=== PATIENT | male | born 1955 | race Caucasian/White ===

== ENCOUNTER 2023-06-14 00:21 | Emergency (ER) | payer SELFPAY ==
--- NOTE | 2023-06-14 00:22 | ED.GENMED ---
History of Present Illness
<Taco Starrcordellfarrah, DO - Last Filed: 06/14/23 21:21>
General
Chief Complaint: Back Pain
Time Seen by Provider: 06/14/23 00:22
History of Present Illness
History of Present Illness:
HPI: Patient came in by ambulance. The reason for visit is somewhat unclear. I spoke to the ER nurse who spoke to EMS. Apparently he was picked up outside of [facility]. He comes in with his suitcase and we were initially told that he was homeless.
The patient tells me that he lives at [address] [place] [address] [address]. He says he was trying to stay warm. He says he was down in [place] earlier to get meth. He cannot recall if he ever mated to [place]. He was on several buses
'trying to stay warm'. He also mentions some back pain earlier and that his primary would not give him gabapentin but now he tells us that his back pain is not bothering him.
EXAM:
GENERAL: The patient appears chronically ill and poorly groomed
HEENT: Nasal discharge noted on facial hair
CARDIOVASCULAR: No murmurs, normal heart rate, regular rhythm, No chest wall tenderness
PULMONARY: No respiratory distress, breath sounds are clear and equal
ABDOMEN: Soft with no peritoneal signs, no tenderness
NEUROLOGIC: Very good strength all extremities, no coordination deficits
PSYCHIATRIC: Patient seems to have some flight of ideas and tangential thoughts. He has limited insight and judgment.
EXTREMITIES: Nontender, no edema, moves all extremities equally
SKIN: No rash, no lesions
TIME OF INITIAL ENCOUNTER: 12:30 AM
NUMBER AND COMPLEXITY OF PROBLEMS ADDRESSED AT THE ENCOUNTER
� Chronic conditions affecting care: Back pain
� Acute Exacerbation and/or Progression of Chronic Illness: This is an acute problem
� Differential Diagnosis includes: Electrolyte abnormality, questionable homelessness, anemia
AMOUNT AND/OR COMPLEXITY OF DATA TO BE REVIEWED AND ANALYZED
� I performed an independent evaluation of and my interpretation is:
EKG:
CT:
X-rays:
Laboratory Studies: White count normal 4.9, hemoglobin 12.5, chemistries unremarkable, alcohol undetected
Other:
� Review of other/old records: No old records available for review
� Clinical information was obtained by an independent historian: EMS
� Prescriptions/Medications Considered but not given:
� Further testing considered but not performed:
RISK OF COMPLICATIONS AND/OR MORBIDITY OR MORTALITY OF PATIENT MANAGEMENT
� Social determinants of health affecting care: The patient tells me that he has an apartment in [place] however EMS told us that he was homeless
� Discussion with other providers:
� Escalation of care including admission/observation vs risk of discharge considered: This appears to be more of a social media intern issue. He may or may not truly have a place to live/go to. I suspect somewhat of a
psychiatric/cognitive impairment presentation as well.
Phy Exam
<Taco Blair, DO - Last Filed: 06/14/23 21:21>
Physical Exam
Physical Exam:
See HPI
Course
<Taco Blair, DO - Last Filed: 06/14/23 21:21>
Orders/Labs/Results
Orders:
Orders
06/14/23 00:36
Case Management Consult ONCE
Case Management Consult: Discharge Planning
06/14/23 00:44
Alcohol Urgent
Complete Blood Count/With Diff Urgent
Comprehensive Metabolic Panel Urgent
Abnormal Lab Results
06/14/23
00:44
RBC 4.10 L 10^6/uL
(4.70-6.10)
Hgb 12.5 L g/dL
(13.0-18.0)
Hct 37.2 L %
(39.0-52.0)
MPV 10.6 H fL
(7.4-10.4)
BUN 24 H mg/dl
(20)
06/14/23 00:44
06/14/23 00:44
Vital Signs
Initial and Last Documented VS:
Initial Vital Signs
Temp Pulse Resp BP Pulse Ox
97.5 F 73 18 147/104 100
06/14/23 00:25 06/14/23 00:25 06/14/23 00:25 06/14/23 00:25 06/14/23 00:25
Last Documented Vital Signs
Temp Pulse Resp BP Pulse Ox
97.5 F 67 18 147/104 97
06/14/23 00:25 06/14/23 04:01 06/14/23 04:01 06/14/23 00:25 06/14/23 02:24
<Ned Bates, DO - Last Filed: 06/14/23 06:59>
Orders/Labs/Results
Orders:
Orders
06/14/23 00:36
Case Management Consult ONCE
Case Management Consult: Discharge Planning
06/14/23 00:44
Alcohol Urgent
Complete Blood Count/With Diff Urgent
Comprehensive Metabolic Panel Urgent
Abnormal Lab Results
06/14/23
00:44
RBC 4.10 L 10^6/uL
(4.70-6.10)
Hgb 12.5 L g/dL
(13.0-18.0)
Hct 37.2 L %
(39.0-52.0)
MPV 10.6 H fL
(7.4-10.4)
BUN 24 H mg/dl
(20)
06/14/23 00:44
06/14/23 00:44
Vital Signs
Initial and Last Documented VS:
Initial Vital Signs
Temp Pulse Resp BP Pulse Ox
97.5 F 73 18 147/104 100
06/14/23 00:25 06/14/23 00:25 06/14/23 00:25 06/14/23 00:25 06/14/23 00:25
Last Documented Vital Signs
Temp Pulse Resp BP Pulse Ox
97.5 F 67 18 147/104 97
06/14/23 00:25 06/14/23 04:01 06/14/23 04:01 06/14/23 00:25 06/14/23 02:24
<Taco Blair, DO - Last Filed: 06/14/23 21:21>
*Critical Care Note
Total Time (30-74mins, 75-104mins- exclusive of procedures): Not Applicable
<Ned Bates, DO - Last Filed: 06/14/23 06:59>
Update Note
Update Note:
06/14/2023 0659 AM: Patient became verbally aggressive towards staff. He defecated on the floor. He wanted to leave. He was escorted out of the building. He understands that case management would not be able to meet with him unless he was
outpatient. I advised him that he is welcome to come back at any point.
ED Attending Note
<Taco Blair, DO - Last Filed: 06/14/23 21:21>
-
Portions of this chart may have been created with voice recognition software.� Occasional wrong word or��sound alike� substitutions may have occurred due to the inherent limitations of voice recognition software.
Discharge Plan
Departure
Patient Disposition: Other
Date of Disposition: 06/14/23
Time of Disposition: 02:46
Discharge Problem:
Encounter for medical assessment
Prescriptions:
No Action
Unobtainable
0
Referrals:
NONE,* [Family Provider] -
Interventions
Interventions:
*Risk Screen - Suicide Last Done: 06/14/23 00:25
*General Assessment Last Done: 06/14/23 00:25
*Neglect/Abuse Screening Last Done: 06/14/23 00:25
ED- Fall Risk Assessment Last Done: 06/14/23 06:05
*ED COVID-19 Vaccine History Last Done: 06/14/23 00:25
*Nursing Disposition Last Done: 06/14/23 06:50
ED-Musculoskeletal Assessment Last Done: 06/14/23 02:00
Discharge Date and Time
Discharge Date/Time: 06/14/23 06:50
[2023-06-14 00:25] VITALS: BP 147/104
[2023-06-14 00:50] LABS: % Basophils 0.8 % (0-2); % Eosinophils 3.2 % (0-6); % Immature Granulocytes 0.4 % (0-0.5); % Lymphocytes 33.2 % (20.5-51.1); % Monocytes 7.9 % (1.7-9.3); % Neutrophils 54.5 % (42.2-75.2); Absolute Eosinophils 0.2 10^3/uL (0-0.7); Absolute Lymphocytes 1.6 10^3/uL (1.2-3.4); Absolute Monocytes 0.4 10^3/uL (0.1-0.6); Absolute Neutrophils 2.7 10^3/uL (1.4-6.5); Hematocrit 37.2 % (39.0-52.0); Hemoglobin 12.5 g/dL (13.0-18.0); Mean Corp Hgb Conc. 33.6 g/dL (33.0-37.0); Mean Corpuscular Hgb 30.5 pg (27.0-31.0); Mean Corpuscular Volume 90.7 fL (80.0-94.0); Mean Platelet Volume 10.6 fL (7.4-10.4); Nucleated Red Blood Cells % 0 % (-); Platelet Count 178 10^3/uL (130-400); Red Cell Dist. Width 13.1 % (11.5-14.5); White Blood Cell Count 4.9 10^3/uL (4.8-10.8)
[2023-06-14 01:30] LABS: ALT (SGPT) 26 U/L (0-50); AST (SGOT) 48 U/L (17-59); Albumin 4.3 g/dl (3.5-5.0); Alcohol None Detected; Alkaline Phosphatase 84 U/L (38-126); Blood Urea Nitrogen 24 mg/dl (9-20); Calcium 9.1 mg/dl (8.4-10.2); Carbon Dioxide 25 mmol/L (22-30); Chloride 107 mmol/L (98-107); Glucose 96 mg/dl (70-99); Potassium 3.8 mmol/L (3.5-5.1); Sodium 139 mmol/L (135-145); Total Bilirubin 1.2 mg/dl (0.2-1.3); Total Protein 7.1 g/dl (6.3-8.2); eGFR > 60.00
== END 2023-06-14 06:50 | disposition other institution (70) ==
LOC: EMR 00:21
PROVIDERS: EMERGENCY PHYSICIAN Emergency Medicine
DX: M54.9 Dorsalgia, unspecified (principal); Z02.79 Encounter for issue of other medical certificate; Z59.00 Homelessness unspecified
CPT/HCPCS: 99283; 80053; 82077; 85025

== ENCOUNTER 2023-08-06 18:53 | Emergency (ER) | payer OTHER, SELFPAY ==
[2023-08-06 19:02] VITALS: BP 170/105
--- NOTE | 2023-08-06 19:14 | ED.MUSCINJ ---
HPI-Injury
General
Chief Complaint: Musculo-Skeletal Complaint
Source: patient
Exam Limitations: none
Time Seen by Provider: 08/06/23 19:02
Travel History
Have you had any contact with someone who has COVID-19?: No
Do you have any symptoms of coronavirus? Fever > 100 degrees, chills, cough, shortness of breath, sore throat, loss of taste or smell, muscle aches, or headache?: No
History of Present Illness-Injury
Initial Injury comments:
67-year-old male brought here by EMS from [place] he tripped over the uneven sidewalk and fell scraping his left knee. Blood was noted on his knee. He is brought here for evaluation. He denies alcohol use. He last used meth couple days ago. He
is homeless. He has no complaints. He was belligerent upon arrival demanding water. He was threatening and speaking inappropriately to the nursing staff.
Phy Exam
Physical Exam
Physical Exam:
General: Well-appearing male no acute distress
Skin: Abrasion noted anterior left knee superficial not currently bleeding
Musculoskeletal exam: Able to straight leg raise left knee full flexion left knee nontender no deformities
HEENT: Normocephalic atraumatic pupils equal round reactive to light
MDM/Problems Addressed
Differential Diagnosis Includes:
Abrasion left knee. This was irrigated with saline and dressed with antibacterial ointment and a gauze wrap. No indication for admission or further intervention. Stable for discharge.
*Critical Care Note
Total Time (30-74mins, 75-104mins- exclusive of procedures): Not Applicable
ED Attending Note
-
Portions of this chart may have been created with voice recognition software.� Occasional wrong word or��sound alike� substitutions may have occurred due to the inherent limitations of voice recognition software.
Discharge Plan
Departure
Patient Disposition: Home (Routine Discharge)
Date of Disposition: 08/06/23
Time of Disposition: 19:17
Patient with high blood pressure during this ER visit?: No
Discharge Problem:
Abrasion
Instructions: Wound Care ED
Prescriptions:
No Action
Unobtainable
0
Referrals:
UNKNOWN - PT NOT,INTERVIEWE [Family Provider] -
Activity Restrictions/Additional Instructions:
Apply antibacterial into the wound. Return if needed
Interventions
Interventions:
*Risk Screen - Suicide Last Done: 08/06/23 19:06
*General Assessment Last Done: 08/06/23 19:06
*Neglect/Abuse Screening Last Done: 08/06/23 19:06
*Nursing Disposition Last Done: 08/06/23 19:30
ED-Musculoskeletal Assessment Last Done: 08/06/23 19:08
Discharge Date and Time
Discharge Date/Time: 08/06/23 19:31
Print Language: TUVALUAN
== END 2023-08-06 19:31 | disposition home or self-care (01) ==
LOC: EMR 18:53
PROVIDERS: EMERGENCY PHYSICIAN Emergency Medicine
DX: S80.212A Abrasion, left knee, initial encounter (principal); W01.0XXA Fall on same level from slipping, tripping and stumbling without subsequent striking against object, initial encounter; Y92.480 Sidewalk as the place of occurrence of the external cause; Z59.00 Homelessness unspecified; F15.90 Other stimulant use, unspecified, uncomplicated
CPT/HCPCS: 99282

== ENCOUNTER 2024-02-05 13:34 | Emergency (ER) | payer SELFPAY ==
[2024-02-05 13:37] VITALS: BP 188/108
[2024-02-05 13:45] VITALS: BMI 26.4
[2024-02-05] MEDS: ATIVAN 1 MG PO (15:11)
--- NOTE | 2024-02-05 16:26 | CM ---
CM met with patient in room. Patient declined shelters. Patient is agreeable to ride to [facility] and he will check in. Patient does have funds for a motel.
PRIETO updated bedside RN.
Cm provided patient with Lyft Ride to [facility].
--- NOTE | 2024-02-13 10:44 | ED.GENMED ---
History of Present Illness
General
Chief Complaint: Substance Abuse
Source: patient
Exam Limitations: none
Time Seen by Provider: 02/05/24 14:38
Nursing documentation reviewed up to this point in time: agreed with
History of Present Illness
History of Present Illness:
Patient is a 68-year-old male who presents to the ER for evaluation. Patient is a poor historian reports he is homeless and uses meth. He denies however but it is reported from EMS the patient was hallucinating. He denies any suicidal thoughts.
Patient denies suicidal/homicidal thoughts. Patient with odd affect mumbling however cooperative
Review of Systems
Review of Systems
Allergies reviewed?: Yes
All Other Systems: ROS reviewed and negative except as documented in HPI and ROS
Constitutional: Reports no symptoms
Cardiac: Reports no symptoms
ABD/GI: Reports no symptoms
Skin: Reports no symptoms
Neurological: Reports no symptoms
Psychiatric: Reports hallucinations (hallucinations reported via EMS ; pt denies ); Denies suicidal
Phy Exam
General Physical Exam
General Presentation: no apparent distress
General age: appears older than age
General Skin: warm and dry
General Habitus: poor hygiene
General Mental: alert
Cardiovascular Exam
Cardiovascular Exam: regular rate/rhythm, no murmur and normal peripheral pulses
Pulmonary Exam
Pulmonary Exam: lungs clear and no respiratory distress
Neurological Exam
Neurological Exam: alert
Musculoskeletal Exam
Musculoskeletal Exam: full ROM
Skin Exam
Skin Exam: normal color and warm/dry
Psychiatric Exam
Psychiatric Exam: normal mood/affect
Course
Orders/Labs/Results
Orders:
Orders
02/05/24 15:06
Crisis Consult Urgent
Reason for Consult: eval for paranoia pt is homeless
Lorazepam [Ativan] 1 mg PO NOW STA
02/05/24 15:08
Lorazepam [Ativan] 1 mg .ROUTE .STK-MED ONE
02/05/24 16:10
Case Management Consult ONCE
Case Management Consult: Discharge Planning
Requested By:: NURSING
Comment: PT. is homeless. Requesting a long term.
Vital Signs
Initial and Last Documented VS:
Initial Vital Signs
Temp Pulse BP Pulse Ox
98.3 F 96 188/108 96
02/05/24 13:37 02/05/24 13:37 02/05/24 13:37 02/05/24 13:37
Last Documented Vital Signs
Temp Pulse BP Pulse Ox
98.3 F 96 188/108 96
02/05/24 13:37 02/05/24 13:37 02/05/24 13:37 02/05/24 13:37
MDM/Problems Addressed
Differential Diagnosis Includes:
Substance abuse
MDM/Problems Addressed:
Patient is a 68-year-old male who was brought by EMS for hallucinating. Patient presented awake alert mumbling and very poor hygiene. He does report he is homeless and admits to drug abuse, meth. Patient was offered [facility] / crisis eval however
wanted to leave . Patient is not homicidal/suicidal .
patient was given information for [facility] in by social work.
Chronic conditions affecting care:
substance abuse
*Critical Care Note
Total Time (30-74mins, 75-104mins- exclusive of procedures): Not Applicable
ED Attending Note
-
Portions of this chart may have been created with voice recognition software.� Occasional wrong word or��sound alike� substitutions may have occurred due to the inherent limitations of voice recognition software.
Discharge Plan
Departure
Patient Disposition: Home (Routine Discharge)
Date of Disposition: 02/05/24
Time of Disposition: 16:36
Patient with high blood pressure during this ER visit?: Yes
Condition: Fair
Covid-19: Not Applicable
Discharge Problem:
substance abuse
Prescriptions:
No Action
Unobtainable
0
Referrals:
NONE,* [Family Provider] -
Activity Restrictions/Additional Instructions:
You were given information for [address] in. Return if any worsening of symptoms.
Interventions
Interventions:
*Risk Screen - Suicide Last Done: 02/05/24 13:37
*General Assessment Last Done: 02/05/24 13:37
*Neglect/Abuse Screening Last Done: 02/05/24 13:37
ED- Fall Risk Assessment Last Done: 02/05/24 13:47
*ED COVID-19 Vaccine History Last Done: 02/05/24 13:37
*Nursing Disposition Last Done: 02/05/24 16:38
ED-Psychological Assessment Last Done: 02/05/24 13:37
Discharge Date and Time
Discharge Date/Time: 02/05/24 16:39
Print Language: PARAGUAYAN
== END 2024-02-05 16:39 | disposition home or self-care (01) ==
LOC: EMR 13:34
PROVIDERS: EMERGENCY PHYSICIAN Emergency Medicine
DX: F19.10 Other psychoactive substance abuse, uncomplicated (principal); Z59.00 Homelessness unspecified
CPT/HCPCS: 99283

== ENCOUNTER 2024-03-08 03:45 | Emergency (ER) | payer MEDICARE, SELFPAY ==
[2024-03-08 03:57] VITALS: BP 169/103
--- NOTE | 2024-03-08 05:18 | ED.GENMED ---
History of Present Illness
<BETTY Hebert - Last Filed: 03/08/24 05:25>
General
Chief Complaint: Social Service Referral
Source: patient and ambulance crew
Exam Limitations: altered mental status (pt admits to meth usage)
Time Seen by Provider: 03/08/24 05:14
Nursing documentation reviewed up to this point in time: agreed with
History of Present Illness
History of Present Illness:
Pt is a 68 yo M with PMH of bipolar disorder and substance abuse who presents to the ED with suicidal ideation x 2 1/2 hours according to EMS and [facility] where he locked himself in the bathroom stating he 'doesn't want to be here anymore.'
Pt is a poor historian and admits he is currently on meth. Pt is lying on floor of room, stating he is feeling okay and just wants to sleep.
Review of Systems
<BETTY Hebert - Last Filed: 03/08/24 05:25>
Review of Systems
Allergies reviewed?: Yes
Unable to obtain full review of systems at this time due to: other (altered mental status)
Other source history: ambulance crew
Phy Exam
<BETTY Hebert - Last Filed: 03/08/24 05:25>
Physical Exam
Physical Exam:
Pt with poor hygiene, smells of urine upon entry of room; Pt is lying on floor of room, covered in blanket; pt refused physical examination
Course
<BETTY Hebert - Last Filed: 03/08/24 05:25>
Orders/Labs/Results
Orders:
Orders
03/08/24 06:21
Urine Drug Abuse Screen Urgent
Date Specimen was Collected: 03/08/24
Time Specimen was Collected: 06:20
03/08/24 08:00
Nicotine [Nicoderm Transdermal] 21 mg TRANSDERM DAILY
Nicotine [Nicoderm Transdermal] 21 mg TRANSDERM DAILY
Vital Signs
Initial and Last Documented VS:
Initial Vital Signs
Pulse Resp BP Pulse Ox
103 22 169/103 97
03/08/24 03:57 03/08/24 03:57 03/08/24 03:57 03/08/24 03:57
Last Documented Vital Signs
Temp Pulse Resp BP Pulse Ox
98.5 F 103 22 169/103 97
03/08/24 04:08 03/08/24 03:57 03/08/24 03:57 03/08/24 03:57 03/08/24 03:57
<Ned Bates DO - Last Filed: 03/08/24 06:52>
Orders/Labs/Results
Orders:
Orders
03/08/24 06:21
Urine Drug Abuse Screen Urgent
Date Specimen was Collected: 03/08/24
Time Specimen was Collected: 06:20
03/08/24 08:00
Nicotine [Nicoderm Transdermal] 21 mg TRANSDERM DAILY
Nicotine [Nicoderm Transdermal] 21 mg TRANSDERM DAILY
Vital Signs
Initial and Last Documented VS:
Initial Vital Signs
Pulse Resp BP Pulse Ox
103 22 169/103 97
03/08/24 03:57 03/08/24 03:57 03/08/24 03:57 03/08/24 03:57
Last Documented Vital Signs
Temp Pulse Resp BP Pulse Ox
98.5 F 103 22 169/103 97
03/08/24 04:08 03/08/24 03:57 03/08/24 03:57 03/08/24 03:57 03/08/24 03:57
<BETTY Hebert - Last Filed: 03/08/24 05:25>
*Critical Care Note
Total Time (30-74mins, 75-104mins- exclusive of procedures): Not Applicable
ED Attending Note
<BETTY Hebert - Last Filed: 03/08/24 05:25>
-
Portions of this chart may have been created with voice recognition software.� Occasional wrong word or��sound alike� substitutions may have occurred due to the inherent limitations of voice recognition software.
<Ned Bates DO - Last Filed: 03/08/24 06:52>
ED Attending Note
Patient seen and examined by attending physician: Yes
I performed the substantive portion of visit, reviewed & personally made and approve the management plan that is documented in note by myself or GALINA.: Yes
ED Attending Note:
This is a 68-year-old male with a past medical history significant for bipolar disorder and substance abuse presents to the emergency department with suicidal ideation. Patient was in a [facility] spending the night when he locked himself in
the bathroom stating that 'he did not want to be here anymore '. Patient does admit to being on meth. Patient is uncooperative, mumbling. Patient was seen in conjunction with the PA student. I have reviewed and agree with the history and
treatment plan presented. On my independent physical exam, patient is awake, lying on the floor. He ripped a hole in his paper scrubs exposing himself stating that 'he cannot breathe without exposure'. Patient is uncooperative and unwilling to
speak with me at this time. Patient is homeless.
Discharge Plan
Departure
Prescriptions:
No Action
Unobtainable
0
Referrals:
UNKNOWN - PT DOES,NOT KNOW [Family Provider] -
Interventions
Interventions:
*Risk Screen - Suicide Last Done: 03/08/24 03:57
*General Assessment Last Done: 03/08/24 03:57
*Neglect/Abuse Screening Last Done: 03/08/24 03:57
ED- Fall Risk Assessment Last Done: 03/08/24 03:57
*ED COVID-19 Vaccine History Last Done: 03/08/24 03:57
ED-Psychological Assessment Last Done: 03/08/24 04:15
Discharge Date and Time
Print Language: SAUDI ARABIAN
[2024-03-08] MEDS: NICODERM TRANSDERMAL 21 MG TRANSDERM (06:18)
[2024-03-08 07:06] LABS: Amphetamines Positive (Negative); Barbiturates Negative (Negative); Benzodiazepines Negative (Negative); Buprenorphine Negative (Negative); Cocaine Negative (Negative); Marijuana Negative (Negative); Methadone Negative (Negative); Methamphetamines Positive (Negative); Opiates Negative (Negative); Phencyclidine Negative (Negative); Tricyclic Antidepressants Negative (Negative)
[2024-03-08 07:30] LABS: Fentanyl, Urine Negative (Negative)
[2024-03-08] MEDS: HALDOL 5 MG IM (08:50)
[2024-03-08] MEDS: ATIVAN 2 MG IM (08:50)
--- NOTE | 2024-03-08 09:48 | CM ---
Cm reviewed medical records. Case Management consult canceled by ED provider. Patient will remain under the care of crisis.
[2024-03-08 09:52] VITALS: BP 122/75
--- NOTE | 2024-03-08 10:29 | W.PN.UPDATE ---
Update Note
Progress Note Update
Patient is presently asleep and difficult to wake after he was given 5 mg of Haldol prn. As a result I was not able to interview him. He has been taking amphetamines as his UDS is positive for both amphetamine and methamphetamine. Based on
documentation he was in the jail where he locked himself in the bathroom, has paranoid thoughts and allegedly stated that he did not want to be ' here ' any more.
I will order prn Ativan IM 2mg for agitation.
Will continue to F/U and interview when awake.
[2024-03-08 12:53] VITALS: BP 163/95
--- NOTE | 2024-03-08 13:14 | ED.CRISIS ---
ED Crisis Note
ED Crisis Note
Subjective:
Pt uncooperative and combative towards staff
Objective:
Unable to be redirected, with continual agitation.
Assessment/Plan:
Decision made to provide ativan/haldol IM. Unfortunately after being provided with sedation, patient too somnolent to be evaluated by psychiatry (). Decision made to initial 302 petition for patient safety.
[2024-03-08 14:53] VITALS: BP 147/81
--- NOTE | 2024-03-08 18:00 | ED.CRISIS ---
ED Crisis Note
ED Crisis Note
Assessment/Plan:
I communicated with Dr. Hummel. He was unable to evaluate the patient in the daytime because of excessive sedation. He says that Dr. Cruz will evaluate the patient tomorrow as psych consult is still pending.
[2024-03-08 18:15] VITALS: BP 129/82
--- NOTE | 2024-03-08 19:00 | EDRN ---
Report received, patient is sleeping at this time, security is there, safe environment maintained, will continue to monitor
--- NOTE | 2024-03-08 20:00 | EDRN ---
Patient woke up and stated they were hungry, patient was provided with sandwich and laid back down.
--- NOTE | 2024-03-09 01:00 | EDRN ---
Patient ambulated to the restroom to urinate and asked for something to drink was provided with a [place] and back in bed resting comfortably.
[2024-03-09 05:57] VITALS: BP 179/100
[2024-03-09] MEDS: ATIVAN 2 MG IM (07:55)
[2024-03-09] MEDS: NICODERM TRANSDERMAL 21 MG TRANSDERM (08:04)
[2024-03-09 10:02] VITALS: BP 162/92
--- NOTE | 2024-03-09 14:35 | CM ---
Addendum entered by Humaira Merlos RN 03/09/24 15:11:
Plan for patient to be given transportation assistance via Lyft to [facility] in [place].
Original Note:
CM was consulted to assist with discharge planning. Patient stated that he wants to eat first and then CM will assist with transportation to [facility]. CM will await call from ER nurse to initiate ride.
== END 2024-03-09 15:31 | disposition home or self-care (01) ==
LOC: EMR 03:45
PROVIDERS: CONSULT PHYSICIAN Psychiatry & Neurology Psychiatry; EMERGENCY PHYSICIAN Student in an Organized Health Care Education/Training Program
DX: F31.9 Bipolar disorder, unspecified (principal); R45.851 Suicidal ideations; Z59.01 Sheltered homelessness; R45.1 Restlessness and agitation
CPT/HCPCS: 96372; 99284; 80306; 80307

== ENCOUNTER 2024-03-29 21:15 | Emergency (ER) | payer MEDICARE, SELFPAY ==
[2024-03-29 21:22] VITALS: BP 165/105
--- NOTE | 2024-03-29 23:08 | ED.GENMED ---
Addendum entered and electronically signed by TERRY Faulkner 03/30/24 00:56:
Patient was given a Prescription for amlodipine 5mg for his BP as he takes this for his Hypertension. He was given his first dose here.
Original Note:
History of Present Illness
General
Chief Complaint: Crisis Evaluation
Source: patient and police
Exam Limitations: none
Time Seen by Provider: 03/29/24 22:16
History of Present Illness
History of Present Illness:
This is a 68 year old male that is brought in by police for medical clearance. States that the patient was seen at [facility] today and was discharged at 2-3pm. States that because it was not written that the patient was medically clear they would
not take patient. Patient has no complaints. Denies any fever, chills, chest pain, SOB, abd pain, nausea, vomiting, diarrhea, headache, dizziness, urinary burning.
Past History
Past History
ED Past Medical History: HTN, Psychiatric (Bipolar) and Other (Substance abuse )
ED Past Surgical History: Urological (Prostate Surgery)
Social History
Tobacco: Smoker
Alcohol: None
Drug: Other (Meth)
Personal: Single
Living: homeless
Review of Systems
Review of Systems
All Other Systems: ROS reviewed and negative except as documented in HPI and ROS
Constitutional: Reports no symptoms; Denies fever or chills
EENT: Reports no symptoms
Respiratory: Denies trouble breathing
Cardiac: Reports no symptoms; Denies chest pain
ABD/GI: Reports no symptoms; Denies abdominal pain, nausea, vomiting or diarrhea
: Reports no symptoms
Musculoskeletal: Reports no symptoms
Skin: Reports no symptoms
Neurological: Reports no symptoms; Denies dizzy or headache
Psychiatric: Reports no symptoms
Phy Exam
General Physical Exam
General Presentation: no apparent distress
General age: appears stated age
General Skin: warm and dry
General Habitus: elderly
General Mental: alert
General Hydration: appears well hydrated
ENT Exam
ENT Exam: TM's normal, pharynx normal and neck supple
Eye Exam
Eye Exam: EOMI
Cardiovascular Exam
Cardiovascular Exam: regular rate/rhythm and normal peripheral pulses
Pulmonary Exam
Pulmonary Exam: lungs clear, no respiratory distress, no rales, chest non tender, no crackles, no rhonchi, no wheezing and no cough
Gastrointestinal Exam
Gastrointestinal Exam: normal bowel sounds, non tender, soft, no organomegaly, no pulsatile mass and non distended
Musculoskeletal Exam
Musculoskeletal Exam: full ROM and no edema
Skin Exam
Skin Exam: normal color, warm/dry, no rash and no petechia
Psychiatric Exam
Psychiatric Exam: normal mood/affect
Course
Orders/Labs/Results
Orders:
Orders
03/29/24 23:08
Urine Drug Abuse Screen Urgent
03/29/24 23:55
Complete Blood Count/With Diff Urgent
Comprehensive Metabolic Panel Urgent
Abnormal Lab Results
03/29/24
23:55
RBC 3.62 L 10^6/uL
(4.70-6.10)
Hgb 11.1 L g/dL
(13.0-18.0)
Hct 33.5 L %
(39.0-52.0)
MPV 11.3 H fL
(7.4-10.4)
BUN 29 H mg/dl
(9-20)
Glucose 117 H mg/dl
(70-99)
03/29/24 23:55
03/29/24 23:55
H/H slightly low. Dehydration. Glucose nonfasting.
Vital Signs
Initial and Last Documented VS:
Initial Vital Signs
Temp Pulse Resp BP Pulse Ox
98 F 71 18 165/105 99
03/29/24 21:22 03/29/24 21:22 03/29/24 21:22 03/29/24 21:22 03/29/24 21:22
Last Documented Vital Signs
Temp Pulse Resp BP Pulse Ox
98 F 71 18 165/105 99
03/29/24 21:22 03/29/24 21:22 03/29/24 21:22 03/29/24 21:22 03/29/24 21:22
MDM/Problems Addressed
Differential Diagnosis Includes:
Medical clearance for Incarceration
MDM/Problems Addressed:
This is a 68 year old male that is brought in by police for medical clearance. Patient was seen at [facility] today and discharged around 2-3 pm but they did not write cleared for incarceration.
Will attempt to get work up from [facility]. Will check labs and urine here.
Spoke with the Nursing roads supervisor at [facility] and patient only had an abd X-ray which showed constipation.
Into see patient. Explained that his blood work shows that he is dehdyrated. Patient to increase his water intake to 8-8oz glasses daily. Will discharge back to shelter.
Chronic conditions affecting care: Psychiatric illness
Acute Exacerbation and/or Progression of Chronic Illness: Psychiatric illness
*Pulse Oximetry
Patient hypoxic: no
*EKG
Interpreted by ED Provider?: NA
Rate: EKG- N/A
*Cocoa Milling Machine Operator Interpretation
Rate: Cocoa Milling Machine Operator- N/A
*Critical Care Note
Total Time (30-74mins, 75-104mins- exclusive of procedures): Not Applicable
ED Attending Note
-
Portions of this chart may have been created with voice recognition software.� Occasional wrong word or��sound alike� substitutions may have occurred due to the inherent limitations of voice recognition software.
Discharge Plan
Departure
Patient Disposition: Group Home
Date of Disposition: 03/30/24
Time of Disposition: 00:47
Patient with high blood pressure during this ER visit?: Yes
Condition: Good
Covid-19: Not Applicable
Discharge Problem:
Medical clearance for incarceration
Instructions: Dehydration in adults - ED discharge instructions, BLOOD PRESSURE
Prescriptions:
No Action
Unobtainable
0
Referrals:
NONE,* [Family Provider] -
Activity Restrictions/Additional Instructions:
As discussed, your blood work shows that you are dehydrated. Please increase your water intake to 8-8oz glasses daily. Please follow up with the doctor in the shelter to recheck your blood pressure. PATIENT IS MEDICALLY CLEARED FOR INCARCERATION. IF
YOU HAVE ANY OTHER CONCERNS PLEASE RETURN TO THE EMERGENCY ROOM.
Interventions
Interventions:
*Risk Screen - Suicide Last Done: 03/29/24 21:22
*General Assessment Last Done: 03/29/24 21:22
*Neglect/Abuse Screening Last Done: 03/29/24 21:22
ED-Psychological Assessment Last Done: 03/29/24 22:47
Discharge Date and Time
Print Language: INDONESIAN
[2024-03-29 23:40] VITALS: BP 191/105
[2024-03-30 00:05] LABS: % Basophils 0.4 % (0-2); % Eosinophils 1.3 % (0-6); % Immature Granulocytes 0.4 % (0-0.5); % Lymphocytes 21.9 % (20.5-51.1); % Monocytes 8.4 % (1.7-9.3); % Neutrophils 67.6 % (42.2-75.2); Absolute Eosinophils 0.1 10^3/uL (0-0.7); Absolute Lymphocytes 1.2 10^3/uL (1.2-3.4); Absolute Monocytes 0.5 10^3/uL (0.1-0.6); Absolute Neutrophils 3.7 10^3/uL (1.4-6.5); Hematocrit 33.5 % (39.0-52.0); Hemoglobin 11.1 g/dL (13.0-18.0); Mean Corp Hgb Conc. 33.1 g/dL (33.0-37.0); Mean Corpuscular Hgb 30.7 pg (27.0-31.0); Mean Corpuscular Volume 92.5 fL (80.0-94.0); Mean Platelet Volume 11.3 fL (7.4-10.4); Nucleated Red Blood Cells % 0 % (-); Platelet Count 192 10^3/uL (130-400); Red Blood Cell Count 3.62 10^6/uL (4.70-6.10); Red Cell Dist. Width 13.2 % (11.5-14.5); White Blood Cell Count 5.5 10^3/uL (4.8-10.8)
[2024-03-30 00:32] LABS: ALT (SGPT) 23 U/L (0-50); AST (SGOT) 38 U/L (17-59); Alkaline Phosphatase 96 U/L (38-126); Blood Urea Nitrogen 29 mg/dl (9-20); Calcium 8.7 mg/dl (8.4-10.2); Carbon Dioxide 29 mmol/L (22-30); Chloride 103 mmol/L (98-107); Glucose 117 mg/dl (70-99); Potassium 4.2 mmol/L (3.5-5.1); Sodium 140 mmol/L (135-145); Total Bilirubin 0.3 mg/dl (0.2-1.3); eGFR > 60.00
--- NOTE | 2024-03-30 00:53 | ED.GENMED ---
History of Present Illness
General
Chief Complaint: Crisis Evaluation
Time Seen by Provider: 03/29/24 22:16
Past History
Past History
ED Past Medical History: HTN, Psychiatric (Bipolar) and Other (Substance abuse )
ED Past Surgical History: Urological (Prostate Surgery)
Social History
Tobacco: Smoker
Alcohol: None
Drug: Other (Meth)
Personal: Single
Living: homeless
Course
Orders/Labs/Results
Orders:
Orders
03/29/24 23:08
Urine Drug Abuse Screen Urgent
03/29/24 23:55
Complete Blood Count/With Diff Urgent
Comprehensive Metabolic Panel Urgent
03/30/24 00:53
Amlodipine [Norvasc] 5 mg PO NOW STA
Abnormal Lab Results
03/29/24
23:55
RBC 3.62 L 10^6/uL
(4.70-6.10)
Hgb 11.1 L g/dL
(13.0-18.0)
Hct 33.5 L %
(39.0-52.0)
MPV 11.3 H fL
(7.4-10.4)
BUN 29 H mg/dl
(9-20)
Glucose 117 H mg/dl
(70-99)
03/29/24 23:55
03/29/24 23:55
Vital Signs
Initial and Last Documented VS:
Initial Vital Signs
Temp Pulse Resp BP Pulse Ox
98 F 71 18 165/105 99
03/29/24 21:22 03/29/24 21:22 03/29/24 21:22 03/29/24 21:22 03/29/24 21:22
Last Documented Vital Signs
Temp Pulse Resp BP Pulse Ox
98 F 71 18 165/105 99
03/29/24 21:22 03/29/24 21:22 03/29/24 21:22 03/29/24 21:22 03/29/24 21:22
ED Attending Note
-
Portions of this chart may have been created with voice recognition software.� Occasional wrong word or��sound alike� substitutions may have occurred due to the inherent limitations of voice recognition software.
Discharge Plan
Departure
Patient Disposition: [facility]
Date of Disposition: 03/30/24
Time of Disposition: 00:47
Patient with high blood pressure during this ER visit?: Yes
Condition: Good
Covid-19: Not Applicable
Discharge Problem:
Medical clearance for incarceration
Instructions: Dehydration in adults - ED discharge instructions, BLOOD PRESSURE
Prescriptions:
New
amlodipine 5 mg tablet
5 mg PO DAILY Qty: 30 0RF
Referrals:
NONE,* [Family Provider] -
Activity Restrictions/Additional Instructions:
As discussed, your blood work shows that you are dehydrated. Please increase your water intake to 8-8oz glasses daily. Please follow up with the doctor in the intermediate to recheck your blood pressure. PATIENT IS MEDICALLY CLEARED FOR INCARCERATION. IF
YOU HAVE ANY OTHER CONCERNS PLEASE RETURN TO THE EMERGENCY ROOM.
Interventions
Interventions:
*Risk Screen - Suicide Last Done: 03/29/24 21:22
*General Assessment Last Done: 03/29/24 21:22
*Neglect/Abuse Screening Last Done: 03/29/24 21:22
ED-Psychological Assessment Last Done: 03/29/24 22:47
Discharge Date and Time
Print Language: ICELANDIC
[2024-03-30] MEDS: NORVASC 5 MG PO (01:00)
== END 2024-03-30 01:10 ==
LOC: EMR 21:15
PROVIDERS: Clinical Nurse Specialist Family Health; EMERGENCY PHYSICIAN Emergency Medicine
DX: Z02.89 Encounter for other administrative examinations (principal); I10 Essential (primary) hypertension; F17.200 Nicotine dependence, unspecified, uncomplicated; Z59.00 Homelessness unspecified
CPT/HCPCS: 99283; 80053; 85025

== ENCOUNTER 2024-07-08 19:44 | Emergency (ER) | payer MEDICARE, SELFPAY ==
[2024-07-08 19:45] VITALS: BP 156/98; BMI 24.3
[2024-07-08 20:13] VITALS: BP 156/98
--- NOTE | 2024-07-08 22:14 | ED.GENMED ---
History of Present Illness
<Dwayne Briceño MD - Last Filed: 07/09/24 21:26>
General
Chief Complaint: Hallucinations
Source: patient
Exam Limitations: none
Time Seen by Provider: 07/08/24 20:32
Nursing documentation reviewed up to this point in time: agreed with
History of Present Illness
History of Present Illness:
Patient presents to ED for mental status change, noted by bystanders at the local [employer] store. Upon arrival, patient is alert and awake, and has no complaints. Patient does admit to having used methamphetamine today. Denies use of any other
illicit medications. Patient states that he is currently homeless. Patient reports having been treated in an inpatient psychiatric facility recently and discharged. Patient was referred to the local homeless senior living, where he was denied. Denies
suicidal or homicidal ideation. Denies recent illness. Patient otherwise wants to be left alone.
Past History
<Dwayne Briceño MD - Last Filed: 07/09/24 21:26>
Past History
ED Past Medical History: HTN, Psychiatric (Bipolar) and Other (Substance abuse )
ED Past Surgical History: Urological (Prostate Surgery)
Social History
Tobacco: Smoker
Alcohol: None
Drug: Other (Meth)
Personal: Single
Living: homeless
Review of Systems
<Dwayne Briceño MD - Last Filed: 07/09/24 21:26>
Review of Systems
Allergies reviewed?: Yes
All Other Systems: ROS reviewed and negative except as documented in HPI and ROS
Constitutional: Reports no symptoms
Respiratory: Reports no symptoms
Cardiac: Reports no symptoms
ABD/GI: Reports no symptoms
Musculoskeletal: Reports no symptoms
Skin: Reports no symptoms
Neurological: Reports no symptoms
Phy Exam
<Dwayne Briceño MD - Last Filed: 07/09/24 21:26>
Physical Exam
Physical Exam:
Physical Exam
General: no apparent distress, not acutely ill. afebrile
Head: nc/at. eomi
Neck: supple. normal range of motion.
Heart: s1/s2 regular rate and rhythm, no murmur.
Lungs: no acute respiratory distress. clear bilaterally
Abdomen: normal bowel sounds. not tender.
Neuro: alert and oriented x 3. no focal neurological deficits
Skin: no rash
Psychiatric: well kept. interactive and cooperative
Extremities: no edema. no calf tenderness.
Course
<Dwayne Briceño MD - Last Filed: 07/09/24 21:26>
Orders/Labs/Results
Orders:
Orders
07/08/24 21:10
Case Management Consult ONCE
Case Management Consult: Discharge Planning
Vital Signs
Initial and Last Documented VS:
Initial Vital Signs
Temp Pulse Resp BP Pulse Ox
98.5 F 108 20 156/98 96
07/08/24 19:45 07/08/24 19:45 07/08/24 19:45 07/08/24 19:45 07/08/24 19:45
Last Documented Vital Signs
Temp Pulse Resp BP Pulse Ox
98.7 F 84 22 149/106 100
07/08/24 23:00 07/09/24 06:50 07/09/24 06:50 07/09/24 06:50 07/09/24 06:50
<Conner Gould DO - Last Filed: 07/09/24 09:11>
Orders/Labs/Results
Orders:
Orders
07/08/24 21:10
Case Management Consult ONCE
Case Management Consult: Discharge Planning
Vital Signs
Initial and Last Documented VS:
Initial Vital Signs
Temp Pulse Resp BP Pulse Ox
98.5 F 108 20 156/98 96
07/08/24 19:45 07/08/24 19:45 07/08/24 19:45 07/08/24 19:45 07/08/24 19:45
Last Documented Vital Signs
Temp Pulse Resp BP Pulse Ox
98.7 F 84 22 149/106 100
07/08/24 23:00 07/09/24 06:50 07/09/24 06:50 07/09/24 06:50 07/09/24 06:50
<Dwayne Briceño MD - Last Filed: 07/09/24 21:26>
MDM/Problems Addressed
MDM/Problems Addressed:
Patient remains alert, awake, and oriented, although exhibiting mild paranoid behavior. Patient denies suicidal or homicidal ideation. Patient is mentally competent. Patient is requesting to speak with medical social worker regarding his current living
situation. As such, will consult case management for discharge planning.
<Conner Gould DO - Last Filed: 07/09/24 09:11>
*Critical Care Note
Total Time (30-74mins, 75-104mins- exclusive of procedures): Not Applicable
<Conner Gould DO - Last Filed: 07/09/24 09:11>
Update Note
Update Note:
9 AM the care of patient was earlier in the morning pending case management evaluation. Patient was stable for discharge but stated he wanted to wait to speak to case management. While in the emergency department, patient eventually decided that
he wanted to leave. Patient walked out the emergency department before having a chance to see case management. Patient denying any suicidal or homicidal thoughts
Patient left before giving verbal discharge instructions but did receive verbal discharge instructions
ED Attending Note
<Dwayne Briceño MD - Last Filed: 07/09/24 21:26>
-
Portions of this chart may have been created with voice recognition software.� Occasional wrong word or��sound alike� substitutions may have occurred due to the inherent limitations of voice recognition software.
Discharge Plan
Departure
Patient Disposition: Home (Routine Discharge)
Date of Disposition: 07/09/24
Time of Disposition: 09:10
Patient with high blood pressure during this ER visit?: Yes
Discharge Problem:
Mental health disorder
Instructions: BLOOD PRESSURE
Prescriptions:
No Action
amlodipine 5 mg tablet
5 mg PO DAILY Qty: 30 0RF
Referrals:
NONE,* [Family Provider] -
Interventions
Interventions:
*Risk Screen - Suicide Last Done: 07/08/24 20:22
*General Assessment Last Done: 07/08/24 19:45
*Neglect/Abuse Screening Last Done: 07/08/24 19:45
*ED- Fall Risk Assessment Last Done: 07/09/24 07:19
*ED COVID-19 Vaccine History Last Done: 07/08/24 19:45
*Nursing Disposition Last Done: 07/09/24 09:13
ED-Suicide Risk Assessment Last Done: 07/08/24 21:24
ED- Neurological Assessment Last Done: 07/08/24 20:22
ED-Psychological Assessment Last Done: 07/08/24 20:22
Discharge Date and Time
Discharge Date/Time: 07/09/24 09:14
Print Language: MONGOLIAN
[2024-07-08 23:00] VITALS: BP 154/118
[2024-07-09 06:50] VITALS: BP 149/106
--- NOTE | 2024-07-09 09:17 | CM ---
Addendum entered by Shala Ulloa 07/09/24 10:39:
Call from [facility]
Pt is not established with housing link or has utilized any services
Notes lengthy W/L for [facility] bed placement in [place], multiple months long currently
Original Note:
ED CM consulted for social issues
Call with [facility] to obtain background info
They will call back after meeting
CM attempted to meet with pt and he walked out of ED prior to CM meeting with him
== END 2024-07-09 09:14 | disposition home or self-care (01) ==
LOC: EMR 19:44
PROVIDERS: EMERGENCY PHYSICIAN Emergency Medicine
DX: F99 Mental disorder, not otherwise specified (principal); I10 Essential (primary) hypertension; F17.200 Nicotine dependence, unspecified, uncomplicated; Z59.00 Homelessness unspecified
CPT/HCPCS: 99283

== ENCOUNTER 2024-10-30 22:30 | Emergency (ER) | payer MEDICARE, SELFPAY ==
[2024-10-30 22:32] VITALS: BP 110/78
[2024-10-31] VITALS (33 sets, daily range): BP systolic 46–200; BP diastolic 20–116; BMI 21.7
--- NOTE | 2024-10-31 01:03 | ED.GENMED ---
History of Present Illness
<Rufus Casey MD - Last Filed: 10/31/24 03:00>
General
Chief Complaint: Cardiac Symptoms
Source: patient and records
Exam Limitations: none
Time Seen by Provider: 10/31/24 00:26
Nursing documentation reviewed up to this point in time: agreed with
History of Present Illness
History of Present Illness:
69-year-old male with a past medical history of hypertension, polysubstance use and bipolar disorder who presents to the emergency room via EMS for evaluation of chest pain. Per EMS report patient was apparently found sleeping on someone's lawn;
police were apparently called the scene and on their arrival patient was complaining of chest pain and requested transport to the emergency room. The patient is initially very argumentative during assessment but eventually willing to talk to me
more about his symptoms. Patient says that he has had chest pain for a few days. He describes a vague aching in the left chest. He denies shortness of breath to me although reported to this in triage. Denies abdominal pain, nausea, vomiting,
back pain, headache, dizziness. Denies any trauma. He was apparently given aspirin from EMS.
Additional history: One of the EMS crew transporting patient was exposed to patient's urine in her mouth and eyes. I spoke to patient about testing for his chief complaint and advised that we would like to check for hepatitis and HIV for source
testing and he verbalized consent.
Past History
<Rufus Casey MD - Last Filed: 10/31/24 03:00>
Past History
ED Past Medical History: HTN, Psychiatric (Bipolar) and Other (Substance abuse )
ED Past Surgical History: Urological (Prostate Surgery)
Social History
Tobacco: Smoker
Alcohol: None
Drug: Other (Meth)
Personal: Single
Living: homeless
Review of Systems
<Rufus Casey MD - Last Filed: 10/31/24 03:00>
Review of Systems
All Other Systems: ROS reviewed and negative except as documented in HPI and ROS
Constitutional: Denies fever
Respiratory: Denies trouble breathing
Cardiac: Reports chest pain
ABD/GI: Denies abdominal pain or vomiting
: Denies flank pain
Musculoskeletal: Denies neck pain or back pain
Neurological: Denies headache
Phy Exam
<Rufus Casey MD - Last Filed: 10/31/24 03:00>
Physical Exam
Physical Exam:
General: Generally unkempt patient sleeping soundly in bed upon my entering the room, wakes to voice and oriented x 3; not in any distress
Head: Normocephalic, atraumatic
Eyes: Conjunctiva normal, sclera anicteric
Throat: Airway intact, handling secretions
Neck: Trachea midline, no JVD noted
Lungs: Clear to auscultation bilaterally, no wheezing, rales, rhonchi
Heart: Regular rate and rhythm, no murmurs, gallops, or rubs
Abd: Soft, non distended, nontender
Neuro: Grossly intact
Extremities: No edema in extremities, warm and well-perfused
Scores
<Rufus Casey MD - Last Filed: 10/31/24 03:00>
Heart Failure Risk
Heart Failure Risk Score: Not Applicable
Heart Score for Chest Pain Patients
STEMI patient?: No
History: Slightly or Non-Suspicious
ECG: Normal
Age: >/= 65 years
Risk Factors: 1 or 2 Risk Factors
Troponin: </= Normal Limit
Heart Score for Chest Pain Patients: 3
Heart Score Risk: 2.5% MACE over next 6 weeks
Withdrawal Assessment of Alcohol
Withdrawal Assessment Completed?: Not applicable
<Harjit Wiley DO - Last Filed: 10/31/24 05:57>
Heart Score for Chest Pain Patients
Heart Score for Chest Pain Patients: 3
Heart Score Risk: 2.5% MACE over next 6 weeks
Course
<Rufus Casey MD - Last Filed: 10/31/24 03:00>
Orders/Labs/Results
Orders:
Orders
10/30/24
Electrocardiogram (*1) Stat
Reason for Study: Chest Pain
10/31/24 00:39
Electrocardiogram (*1) Urgent
Reason for Study: Chest Pain
EKG- Treatment ONCE
10/31/24 00:40
CR Chest - 2 Views Urgent
Comment:
Reason For Exam: chest pain
10/31/24 01:25
Alcohol Urgent
Complete Blood Count/With Diff Urgent
Comprehensive Metabolic Panel Urgent
HIV Combo Urgent
Hepatitis A IgM Antibody Urgent
Hepatitis B Core Ab, IgM Urgent
Hepatitis B Surface Antibody Urgent
Hepatitis B Surface Antigen Urgent
Hepatitis C Antibody Urgent
Lipase Urgent
Troponin I Urgent
10/31/24 02:59
Amlodipine [Norvasc] 5 mg PO ONCE ONE
10/31/24 04:23
Troponin I Urgent
Abnormal Lab Results
10/31/24
01:25
RBC 3.42 L 10^6/uL
(4.70-6.10)
Hgb 9.1 L g/dL
(13.0-18.0)
Hct 29.3 L %
(39.0-52.0)
MCH 26.6 L pg
(27.0-31.0)
MCHC 31.1 L g/dL
(33.0-37.0)
RDW 15.5 H %
(11.5-14.5)
Monocytes % 9.5 H %
(1.7-9.3)
BUN 23 H mg/dl
(9-20)
10/31/24 01:25
10/31/24 01:25
Vital Signs
Initial and Last Documented VS:
Initial Vital Signs
Temp Pulse Resp BP Pulse Ox
98.0 F 76 20 110/78 99
10/30/24 22:32 10/30/24 22:32 10/30/24 22:32 10/30/24 22:32 10/30/24 22:32
Last Documented Vital Signs
Temp Pulse Resp BP Pulse Ox
98.2 F 78 13 169/106 95
10/31/24 00:34 10/31/24 04:15 10/31/24 04:15 10/31/24 04:10 10/31/24 04:00
<Harjit Wiley, DO - Last Filed: 10/31/24 05:57>
Orders/Labs/Results
Orders:
Orders
10/30/24
Electrocardiogram (*1) Stat
Reason for Study: Chest Pain
10/31/24 00:39
Electrocardiogram (*1) Urgent
Reason for Study: Chest Pain
EKG- Treatment ONCE
10/31/24 00:40
CR Chest - 2 Views Urgent
Comment:
Reason For Exam: chest pain
10/31/24 01:25
Alcohol Urgent
Complete Blood Count/With Diff Urgent
Comprehensive Metabolic Panel Urgent
HIV Combo Urgent
Hepatitis A IgM Antibody Urgent
Hepatitis B Core Ab, IgM Urgent
Hepatitis B Surface Antibody Urgent
Hepatitis B Surface Antigen Urgent
Hepatitis C Antibody Urgent
Lipase Urgent
Troponin I Urgent
10/31/24 02:59
Amlodipine [Norvasc] 5 mg PO ONCE ONE
10/31/24 04:23
Troponin I Urgent
Abnormal Lab Results
10/31/24
01:25
RBC 3.42 L 10^6/uL
(4.70-6.10)
Hgb 9.1 L g/dL
(13.0-18.0)
Hct 29.3 L %
(39.0-52.0)
MCH 26.6 L pg
(27.0-31.0)
MCHC 31.1 L g/dL
(33.0-37.0)
RDW 15.5 H %
(11.5-14.5)
Monocytes % 9.5 H %
(1.7-9.3)
BUN 23 H mg/dl
(9-20)
10/31/24 01:25
10/31/24 01:25
Vital Signs
Initial and Last Documented VS:
Initial Vital Signs
Temp Pulse Resp BP Pulse Ox
98.0 F 76 20 110/78 99
10/30/24 22:32 10/30/24 22:32 10/30/24 22:32 10/30/24 22:32 10/30/24 22:32
Last Documented Vital Signs
Temp Pulse Resp BP Pulse Ox
98.2 F 78 13 169/106 95
10/31/24 00:34 10/31/24 04:15 10/31/24 04:15 10/31/24 04:10 10/31/24 04:00
<Rufus Casey MD - Last Filed: 10/31/24 03:00>
MDM/Problems Addressed
Differential Diagnosis Includes:
GERD, costochondritis, ACS, pneumothorax/pneumonia, anxiety
MDM/Problems Addressed:
69-year-old male presents to the ER for atypical chest pain�was sleeping on someone's lawn, police called and when they arrived he said he was having chest pain and requested EMS transport to the ER. He says he has been having pain for a few days.
He is hypertensive but otherwise normal vitals here. Physical exam as above. EKG shows no STEMI but does show some LVH. Plan to place an IV check labs including a CBC and a CMP, lipase, troponin. The medics transporting the patient were exposed
to patient urine and mouth/eyes�spoke to patient and explained that we would like to test for hepatitis and HIV and he verbalized consent for this testing and so we will send these for source patient testing. Will continue to monitor here and
reassess after the above.
Labs reviewed: CBC shows anemia which is a chronic issue. Initial troponin negative. Will trend. Rest of labs are still pending. Chest x-ray reviewed by me shows no acute disease. Patient sleeping comfortably on reassessment. Blood pressure
has been elevated�patient supposed to be on amlodipine but noncompliant. Will provide dose here and can refill prescription.
Chronic conditions affecting care:
Hypertension, polysubstance use
<Rufus Casey MD - Last Filed: 10/31/24 03:00>
*Radiology
Radiology exam reviewed: preliminary read by ED provider
*Pulse Oximetry
SaO2: 98
Oxygen Mode of Delivery: Room air
Patient hypoxic: no (98%)
*EKG
Interpreted by ED Provider?: Yes
Heart Rate: 71
Rate: normal
Rhythm: sinus
[place]: left axis deviation
Interval: normal interval
QRS Pattern: left vent hypertrophy
Ischemia: no ischemia
*Critical Care Note
Total Time (30-74mins, 75-104mins- exclusive of procedures): Not Applicable
Data Reviewed
Review of Other/Old Records Reveals: Labs and Records
Source: patient, records and ambulance crew
<Harjit Wiley DO - Last Filed: 10/31/24 05:57>
Update Note
Update Note:
Patient received in signout. Denies chest pain at this time. Serial troponins negative for ischemia. Patient stable for discharge.
ED Attending Note
<Rufus Casey MD - Last Filed: 10/31/24 03:00>
-
Portions of this chart may have been created with voice recognition software.� Occasional wrong word or��sound alike� substitutions may have occurred due to the inherent limitations of voice recognition software.
Discharge Plan
Departure
Patient Disposition: Home (Routine Discharge)
Date of Disposition: 10/31/24
Time of Disposition: 05:56
Patient with high blood pressure during this ER visit?: Yes
Discharge Problem:
Chest pain, Hypertension, Anemia
Instructions: Chest Pain (DC), BLOOD PRESSURE
Prescriptions:
New
amlodipine 5 mg tablet
5 mg PO DAILY Qty: 30 0RF
No Action
amlodipine 5 mg tablet
5 mg PO DAILY Qty: 30 0RF
Referrals:
NONE,* [Family Provider, Internal Medicine]
Activity Restrictions/Additional Instructions:
Thank you for visiting the Emergency Department at [facility].
1. Please schedule a follow up appointment as directed. Call first thing tomorrow morning to make an appointment.
2. If indicated, please take your medications as instructed and indicated on discharge paperwork.
3. If any of your symptoms do not improve, or persist, or become more severe within 6-12 hours, please return to the emergency department for further care.
4. Please return to the emergency department if you develop a headache, neck pain/stiffness, fever greater than 100.4F, chest pain, shortness of breath, persistent nausea, vomiting, slurred speech, difficulty walking, numbness/tingling, weakness,
signs of infection or any other symptoms that are worrisome to you.
Please call [phone] if you have any questions.
Interventions
Interventions:
*Risk Screen - Suicide Last Done: 10/31/24 00:35
*General Assessment Last Done: 10/30/24 22:32
*Neglect/Abuse Screening Last Done: 10/31/24 00:35
*ED- Fall Risk Assessment Last Done: 10/31/24 00:35
*ED COVID-19 Vaccine History Last Done: 10/31/24 00:35
ED- Pulmonary Assessment Last Done: 10/31/24 00:35
ED- Cardiac Assessment Last Done: 10/31/24 00:35
Discharge Date and Time
Print Language: NEPALI
[2024-10-31 01:32] LABS: Hematocrit 29.3 % (39.0-52.0); Hemoglobin 9.1 g/dL (13.0-18.0); Mean Corp Hgb Conc. 31.1 g/dL (33.0-37.0); Mean Corpuscular Volume 85.7 fL (80.0-94.0); Nucleated Red Blood Cells % 0 % (-); Platelet Count 239 10^3/uL (130-400); Red Cell Dist. Width 15.5 % (11.5-14.5)
[2024-10-31 01:56] LABS: Troponin I 0.018 ng/ml
[2024-10-31 03:10] LABS: ALT (SGPT) 36 U/L (0-50); AST (SGOT) 34 U/L (17-59); Albumin 4.2 g/dl (3.5-5.0); Alkaline Phosphatase 94 U/L (38-126); Blood Urea Nitrogen 23 mg/dl (9-20); Calcium 9.2 mg/dl (8.4-10.2); Carbon Dioxide 28 mmol/L (22-30); Chloride 106 mmol/L (98-107); Estimated Creatinine Clearance 74 ml/min; Glucose 95 mg/dl (70-99); Lipase 138 U/L (23-300); Potassium 4.5 mmol/L (3.5-5.1); Sodium 140 mmol/L (135-145); Total Protein 7.5 g/dl (6.3-8.2); eGFR > 60.00
[2024-10-31] MEDS: NORVASC 5 MG PO (03:13)
[2024-10-31 05:13] LABS: Troponin I 0.019 ng/ml
[2024-10-31 19:17] LABS: Hepatitis B Surface Antigen Negative (Negative)
[2024-10-31 19:34] LABS: Hepatitis C Antibody Negative (Negative)
== END 2024-10-31 06:11 | disposition home or self-care (01) ==
LOC: EMR 22:30
PROVIDERS: EMERGENCY PHYSICIAN Emergency Medicine
DX: R07.89 Other chest pain (principal); I10 Essential (primary) hypertension; D64.9 Anemia, unspecified; F31.9 Bipolar disorder, unspecified; F19.90 Other psychoactive substance use, unspecified, uncomplicated; F17.200 Nicotine dependence, unspecified, uncomplicated
CPT/HCPCS: 99283; 71046; 80053; 82077; 83690; 84484; 85025; 86705; 86706; 86709; 86803; 87340; 87389; 93005